=== PATIENT | male | born 1985 | race Caucasian/White ===

== ENCOUNTER 2023-03-17 15:15 | Emergency (ER) | payer OTHER, SELFPAY ==
[2023-03-17 15:27] VITALS: BP 147/78; PULSE 81; RESP 18; TEMP 36.6; O2SAT 97; BMI 21.6
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
[2023-03-17 16:04] VITALS: BP 119/72; PULSE 84; RESP 16; O2SAT 98
== END 2023-03-17 16:08 | disposition home or self-care (01) ==
PROVIDERS: Emergency Provider Emergency Medicine
DX: S80.12XA Contusion of left lower leg, initial encounter (principal); V89.2XXA Person injured in unspecified motor-vehicle accident, traffic, initial encounter
CPT/HCPCS: 99281